=== PATIENT | female | born 1975 | race Caucasian/White ===

== ENCOUNTER → 2016-12-23 | Outpatient (CLI) | payer OTHER ==
[~2016-12-23] MED LIST: AUGM875T27 PO; BREO1INH3 INH; DRIS50002 PO; ESCI10TA2 PO; NORCOTAB PO; PERCOCET PO; SENN1TAB2 PO; SING10TA32 PO; XYZA5TAB2 PO
--- NOTE | 2016-12-23 11:26 | REP ---
MAXILLOFACIAL CT WITHOUT CONTRAST: HISTORY: Chronic sinusitis. COMPARISON: 05/12/2014 Moderate mucosal thickening is present in the right maxillary sinus. Mild mucosal thickening is present in the left maxillary sinus. Minimal mucosal thickening present in the ethmoid and sphenoid sinuses. The frontal sinuses are clear. Mucosal thickening involves the right osteomeatal unit. The left osteomeatal unit is patent. The middle and inferior nasal turbinates are partially paradoxical. There is mild deviation of the nasal septum to the right anteriorly and to the left posteriorly. A spur is present arising from the left side of the nasal septum. The spur abuts the left middle nasal turbinate. The cribriform plate, medial tran of the orbits, and optic canals are intact. There is aeration of the anterior clinoid processes. The carotid canals form a segment of the posterolateral tran of the sphenoid sinus. IMPRESSION: Sinus mucosal thickening as described above. Signed by Malcolm Santana MD 12/23/2016 11:29 A
== END ==
LOC: M RAD 10:52
PROVIDERS: ATTEND Otolaryngology
DX: J32.4 Chronic pansinusitis (principal)

== ENCOUNTER → 2017-09-28 | Outpatient (CLI) | payer OTHER | LOC: M SMT 14:26 | DX: R07.89 Other chest pain (principal) | CPT/HCPCS: 71046 ==

== ENCOUNTER 2018-12-26 07:48 | Emergency (ER) | payer OTHER ==
[~2018-12-26] VITALS: Ht 167.6 cm; Wt 75.0 kg
[~2018-12-26 07:48] MED LIST changes: -AUGM875T27 PO; +AUGM875T28 PO; -DRIS50002 PO; +DRIS50003 PO; +HYDR-3715 PO; -NORCOTAB PO; -SENN1TAB2 PO; +SENN1TAB40 PO
[2018-12-26] MEDS ORDERED: RANI1TAB38 PO (08:13)
[2018-12-26 09:53] LABS: HEMOGLOBIN 14.2 g/dl (12.0-15.5); MEAN CORPUSCULAR HEMOGLOBIN 31.6 pg (27.0-33.0); MEAN CORPUSCULAR HGB CONC 33.8 g/dl (32.0-36.5); MEAN CORPUSCULAR VOLUME 93.3 fl (80.0-96.0); PLATELET COUNT, AUTOMATED 318 10^3/uL (150-450); WHITE BLOOD COUNT 19.3 10^3/uL (4.0-10.0)
[2018-12-26 10:09] LABS: INR 0.91; PROTHROMBIN TIME 12.3 SECONDS (12.1-14.4)
[2018-12-26 10:10] LABS: PARTIAL THROMBOPLASTIN TIME 25.5 SECONDS (25.4-37.6)
--- NOTE | 2018-12-26 10:11 | REP ---
CT BRAIN WITHOUT CONTRAST: CT brain performed without IV contrast. There are mild areas of hemorrhagic contusion involving the right parietal and occipital lobes. There is mild associated edema with effacement of sulci in these regions. There is no other evidence of acute intracranial hemorrhage. There is no extra-axial fluid collection or subdural hematoma. There is no midline shift. Ventricles are normal in size and position. No skull fracture is seen. IMPRESSION: Mild hemorrhagic contusions involving the right parietal and occipital lobes with mild associated edema. No subdural hematoma. No skull fracture. There is mild effacement of the frontal horn of the right lateral ventricle. Dr. Howell was informed of these findings at the time of the exam, 9 a.m., 12/26/2018. Electronically Signed by Garcia Steiner MD 12/26/2018 11:32 A
--- NOTE | 2018-12-26 10:14 | REP ---
CT CERVICAL SPINE: CT cervical spine performed in the axial plane. Sagittal and coronal reconstruction images are performed. There is no acute fracture or dislocation. Vertebral bodies are normal in height and are well aligned. There is no prevertebral soft tissue swelling. There is mild narrowing of C6-7 disc space. No abnormal density is seen in the spinal canal. IMPRESSION: No evidence of acute fracture or dislocation. Electronically Signed by Garcia Steinre MD 12/26/2018 11:33 A
--- NOTE | 2018-12-26 10:16 | REP ---
CT MAXILLOFACIAL BONES: CT maxillofacial bones performed without IV contrast in the axial plane. Sagittal and coronal reconstruction images are performed. There is no evidence of acute fracture. Orbital floors are intact. Zygomatic arches are intact. There is deviation of the nasal septum to the right. Mastoid air cells are clear. There is mild mucosal thickening in the ethmoid sinuses. IMPRESSION: No evidence of acute fracture of the maxillofacial bones. Electronically Signed by Garcia Steiner MD 12/26/2018 11:33 A
[2018-12-26 10:19] LABS: ALBUMIN 4.4 GM/DL (3.2-5.2); ALT/SGPT 32 U/L (12-78); BILIRUBIN,DIRECT < 0.1 MG/DL (0.0-0.2); BILIRUBIN,TOTAL 0.2 MG/DL (0.2-1.0); BLOOD UREA NITROGEN 9 MG/DL (7-18); CALCIUM LEVEL 8.6 MG/DL (8.5-10.1); CARBON DIOXIDE LEVEL 26 MEQ/L (21-32); CHLORIDE LEVEL 111 MEQ/L (98-107); CREATININE FOR GFR 0.63 MG/DL (0.55-1.30); ETHYL ALCOHOL (ETHANOL) 0.178 % (0.000-0.010); GLOMERULAR FILTRATION RATE > 60.0 (>58); GLUCOSE, FASTING 99 MG/DL (70-100); SODIUM LEVEL 144 MEQ/L (136-145); TOTAL PROTEIN 7.7 GM/DL (6.4-8.2)
--- NOTE | 2018-12-26 10:25 | REP ---
RIGHT HAND, FOUR VIEWS: There is no evidence of an acute fracture, dislocation or intrinsic bone disease. IMPRESSION: No fracture or dislocation. Electronically Signed by Garcia Steiner MD 12/26/2018 11:36 A
[2018-12-26] MEDS ORDERED: ACETAMINOPHEN TAB 650MG DOSE (2X325MG) PO ONE (10:30)
[2018-12-26 10:55] VITALS: BP 137/70
== END 2018-12-26 10:59 | disposition short-term general hospital (02) ==
LOC: EDBD 07:48 → M ED 07:48
DX: I61.9 Nontraumatic intracerebral hemorrhage, unspecified (principal); S00.83XA Contusion of other part of head, initial encounter; S60.221A Contusion of right hand, initial encounter; T14.8XXA Other injury of unspecified body region, initial encounter; Y04.8XXA Assault by other bodily force, initial encounter; Y07.03 Male partner, perpetrator of maltreatment and neglect; Y92.018 Other place in single-family (private) house as the place of occurrence of the external cause; J45.909 Unspecified asthma, uncomplicated; F33.9 Major depressive disorder, recurrent, unspecified; K21.9 Gastro-esophageal reflux disease without esophagitis; Z79.899 Other long term (current) drug therapy; Z91.018 Allergy to other foods; F17.210 Nicotine dependence, cigarettes, uncomplicated
CPT/HCPCS: 70450; 70486; 72125; 73130; 80048; 80076; 85027; 85610; 85730; 99284; G0480

== ENCOUNTER → 2019-10-28 | Outpatient (CLI) | payer OTHER ==
[~2019-10-28] MED LIST changes: +RANI1TAB38 PO; +SENN-53 PO; -SENN1TAB40 PO
--- NOTE | 2019-10-28 08:11 | REPVR ---
PROCEDURE INFORMATION: Exam: CT Maxillofacial Without Contrast, Sinus Exam date and time: 10/28/2019 7:52 AM Age: 44 years old Clinical indication: Pain; Other: Sinus; Additional info: Chronic pansinusitis TECHNIQUE: Imaging protocol: CT Maxillofacial without contrast. Focus on the sinuses. Radiation optimization: All CT scans at this facility use at least one of these dose optimization techniques: automated exposure control; mA and/or kV adjustment per patient size (includes targeted exams where dose is matched to clinical indication); or iterative reconstruction. COMPARISON: CT Maxilofacial w/out contrast 12/26/2018 8:19 AM FINDINGS: Frontal sinuses: There is a minimal amount of mucosal thickening in medial and inferior aspect of right frontal sinus. Left frontal sinus is clear. Nasofrontal recesses are clear. Ethmoid air cells: Sphenoid ethmoidal recesses are clear. There are small bilateral Fernando cells with partial opacification. There is minimal mucosal thickening in anterior ethmoid air cells, right greater than left. Sphenoid sinuses: There is minimal amount of mucosal thickening in inferior sphenoid sinuses bilaterally. Maxillary sinuses: There is small amount of mucosal thickening along the inferior aspect of maxillary sinuses. Ostiomeatal complexes are clear. Orbits: Orbits are normal. Globes are unremarkable. No evidence of mass. Auditory system: Mastoid air cells and middle ear cavities are well developed and well aerated. Nasal cavity/Septum: There is stable mild deviation of nasal septum. There is stable spur projecting to the left which abuts the middle turbinate. Soft tissues: Unremarkable. Bones/joints: Unremarkable. IMPRESSION: Minimal paranasal sinuses mucosal thickening. No air-fluid levels. Electronically signed by: Cynthia Isbell On 10/28/2019 08:10:42 AM
== END ==
LOC: M RAD 07:44
PROVIDERS: ATTEND Otolaryngology
DX: J32.4 Chronic pansinusitis (principal); J34.2 Deviated nasal septum

== ENCOUNTER → 2021-04-09 | Outpatient (REF) | payer OTHER ==
[~2021-04-09] MED LIST changes: +ESCI10TA16 PO; -ESCI10TA2 PO
[2021-04-09 18:00] LABS: AMORPHOUS SEDIMENT SMALL (NEGATIVE); APPEARANCE, URINE CLOUDY (CLEAR); BACTERIA, URINE AUTO NEGATIVE (NEGATIVE); BILIRUBIN, URINE AUTO NEGATIVE (NEGATIVE); BLOOD, URINE BLOOD 1+ (NEGATIVE); COLOR, URINE YELLOW (YELLOW); GLUCOSE, URINE (UA) AUTO NEGATIVE (NEGATIVE); KETONE, URINE AUTO NEGATIVE (NEGATIVE); LEUKOCYTE ESTERASE, URINE AUTO NEGATIVE (NEGATIVE); NITRITE, URINE AUTO NEGATIVE (NEGATIVE); PROTEIN, URINE AUTO NEGATIVE (NEGATIVE); RBC, URINE AUTO 2 /HPF (0-3); SQUAMOUS EPITHELIAL CELL UR AU 0 /HPF (0-6); UROBILINOGEN, URINE AUTO 0.2 mg/dL (0.0-2.0); WBC, URINE AUTO 2 /HPF (0-3)
== END ==
LOC: M LAB REF 17:28
PROVIDERS: ATTEND Physician Assistant Medical
DX: N39.0 Urinary tract infection, site not specified (principal); R30.0 Dysuria

== ENCOUNTER → 2022-03-14 | Outpatient (CLI) | payer OTHER ==
[2022-03-14 13:37] LABS: HEMATOCRIT 41.8 % (36.0-47.0); HEMOGLOBIN 13.9 g/dl (12.0-15.5); MEAN CORPUSCULAR HEMOGLOBIN 31.4 pg (27.0-33.0); MEAN CORPUSCULAR HGB CONC 33.3 g/dl (32.0-36.5); MEAN CORPUSCULAR VOLUME 94.4 fl (80.0-96.0); PLATELET COUNT, AUTOMATED 306 10^3/uL (150-450); RED BLOOD COUNT 4.43 10^6/uL (4.00-5.40); WHITE BLOOD COUNT 6.9 10^3/uL (4.0-10.0)
[2022-03-14 15:24] LABS: ALBUMIN 3.9 GM/DL (3.2-5.2); ALT/SGPT 22 U/L (12-78); BILIRUBIN,TOTAL 0.4 MG/DL (0.2-1.0); BLOOD UREA NITROGEN 15 MG/DL (7-18); CALCIUM LEVEL 9.2 MG/DL (8.5-10.1); CARBON DIOXIDE LEVEL 25 MEQ/L (21-32); CHLORIDE LEVEL 109 MEQ/L (98-107); CHOLESTEROL LEVEL 260 MG/DL (<200); CHOLESTEROL RISK RATIO 5.652 (<5); CREATININE FOR GFR 0.76 MG/DL (0.55-1.30); FREE T4 1.03 NG/DL (0.76-1.46); GLOMERULAR FILTRATION RATE > 60.0 (>58); GLUCOSE, FASTING 94 MG/DL (70-100); HDL CHOLESTEROL 46 MG/DL (>40); LDL CHOLESTEROL 187 MG/DL (<100); NON-HDL-C 214 MG/DL; POTASSIUM SERUM 4.4 MEQ/L (3.5-5.1); SODIUM LEVEL 137 MEQ/L (136-145); TOTAL PROTEIN 7.1 GM/DL (6.4-8.2); TRIGLYCERIDES LEVEL 135 MG/DL (<150)
[2022-03-14 15:28] LABS: TOTAL 25(OH) VITAMIN D 17.8 NG/ML (30.0-100.0)
[2022-03-14 15:30] LABS: VITAMIN B12 LEVEL 434 PG/ML (247-911)
[2022-03-14 17:24] LABS: MALB URINE SIEMENS 10.1 MG/L; MAU/CREAT RATIO 5.7 MCG/MG (0.0-30.0)
[2022-03-14 17:59] LABS: HEMOGLOBIN A1c 5.5 %
[2022-03-17 15:07] LABS: INSULIN LEVEL 12.6 uIU/mL (2.6-24.9); LIPOPROTEIN (a) 40.1 nmol/L (<75.0)
== END ==
LOC: M WUC 10:47
PROVIDERS: ATTEND Internal Medicine Hematology
DX: K51.90 Ulcerative colitis, unspecified, without complications (principal)

== ENCOUNTER → 2024-05-04 | Outpatient (CLI) | payer OTHER ==
[~2024-05-04] MED LIST changes: +MONT-5 PO; -SING10TA32 PO
== END ==
LOC: M WHC 09:05
PROVIDERS: ATTEND Physician Assistant
DX: R92.8 Other abnormal and inconclusive findings on diagnostic imaging of breast (principal); N63.20 Unspecified lump in the left breast, unspecified quadrant; R92.343 Mammographic extreme density, bilateral breasts; N60.11 Diffuse cystic mastopathy of right breast; N60.12 Diffuse cystic mastopathy of left breast

== ENCOUNTER → 2024-11-22 | Outpatient (CLI) | payer OTHER | LOC: M WHC 07:38 | PROVIDERS: ATTEND Physician Assistant Medical | DX: N63.10 Unspecified lump in the right breast, unspecified quadrant (principal) ==